=== PATIENT | male | born 1970 | race Two or more races ===

== ENCOUNTER 2016-08-12 18:48 | Observation (INO) | payer OTHER ==
--- NOTE | 2016-08-12 19:01 | CPEKG ---
Heart Rate: 103 RR Interval: 583 P-R Interval: 148 QRSD Interval: 98 QT Interval: 328 QTC Interval: 430 P [place]: 71 QRS [place]: 127 T Wave [place]: 20 EKG Severity - ABNORMAL ECG - EKG Impression: SINUS TACHYCARDIA EKG Impression: RIGHT VENTRICULAR HYPERTROPHY Electronically Signed By: Karan Crespo 12-Aug-2016 23:10:10
[2016-08-12] MEDS ORDERED: NS 1,000 ML IV ONE (19:12)
--- NOTE | 2016-08-12 19:12 | EDPHY ---
H & P Time Seen by Provider: 08/12/16 18:53 HPI/ROS: Chief complaint. Chest pain HPI. 46-year-old male here by EMS with right-sided chest pain. He developed a cough today. It is not productive. He has had cold sweats and shaking today. Unsure whether he had a fever. He felt somewhat delirious. He had a near syncopal episode. Pain on the right side is worse with movement but not with breathing or exertion. He does feel slightly short of breath. He has no unusual leg pain or swelling. He has had recent travel to the [facility] in the last 2 weeks. Denies any other medical problems. No known exposure to Infectious Disease ROS Constitutional. Fever and weakness Eyes. no problems with vision ENT. no sore throat, no nasal drainage Cardiovascular. Right-sided chest pain Respiratory. Shortness of breath cough Abdominal. no abdominal pain, no nausea/vomiting, no diarrhea . no problems urinating MS. no calf pain/swelling, no neck/back pain, no joint pain Skin. no rash Lymph. no swollen glands Neuro. Near syncope Past Medical/Surgical History: Denies past medical history Social History: , nonsmoker, no alcohol Smoking Status: Former smoker Physical Exam: General Appearance: Alert well-developed male moderate distress vital signs show temp 38.1degrees, heart rate 115, blood pressure 153/108 Eyes: Pupils equal and round no pallor or injection. ENT, Mouth: Mucous membranes are moist. Respiratory: No retractions. Lungs are essentially clear though may be some rhonchi on the right. Cardiovascular: Regular rate and rhythm. Gastrointestinal: Abdomen is soft and nontender, no masses, bowel sounds normal. Neurological: Awake and alert, sensory and motor exams grossly normal. Skin: Warm and dry, no rashes. Musculoskeletal: Neck is supple nontender. Extremities symmetrical, full range of motion. Psychiatric: Patient is oriented X 3, there is no agitation. Constitutional: Initial Vital Signs Temperature (C) 38.1 C 08/12/16 18:52 Heart Rate 115 H 08/12/16 18:52 Respiratory Rate 24 H 08/12/16 18:52 Blood Pressure 153/108 H 08/12/16 18:52 O2 Sat (%) 97 08/12/16 18:52 O2 Delivery Mode Room Air Allergies/Adverse Reactions: No Known Allergies Allergy (Unverified 08/12/16 18:52) Home Medications: Medication Instructions Recorded Herbals/Supplements -Info Only 1 ea PO DAILY 08/12/16 Ibuprofen [Motrin (*)] 800 mg PO HS 08/12/16 Multivitamins [Multivitamin (*)] 1 each PO DAILY 08/12/16 Medical Decision Making - Diagnostics EKG Interpretation: EKG interpreted by me shows sinus tachycardia with normal interval and axis. Evidence of right ventricular hypertrophy. QRS otherwise normal. There is no significant ST elevation or depression. No arrhythmia. The rate is 103 Procedures: IV normal saline. Sepsis workup. Initial lactate is elevated at 2.8. Severe sepsis is declared now. Repeat lactate is ordered. 30 milliliter/kilogram fluid bolus is ordered. IV ceftriaxone and azithromycin ED Course/Re-evaluation: Re-evaluation at 8:10 p.m.. The patient and I discussed EKG, imaging, laboratory evaluation. We discussed treatment plan and recommendation for admission. He expresses understanding and agreement I have consulted and discussed case with Dr. Banuelos, hospitalist, who agrees to the admission Differential Diagnosis: Patient had signs and symptoms of sepsis. By laboratory evaluation he has severe sepsis with elevated lactate. He has fever, cough, and right-sided chest discomfort. I suspect that he is developing right-sided pneumonia. I considered pulmonary embolus and acute coronary syndrome as well This is a community-acquired pneumonia as the patient does not have regular contact with healthcare facility and has not recently been on antibiotics Critical Care Time: Critical care time exclusive procedures 35 minutes - Data Points Laboratory Results: Laboratory Results 08/12/16 18:55 08/12/16 18:55 08/12/16 08/12/16 08/12/16 19:31 19:20 18:55 WBC RBC Hgb Hct MCV MCH MCHC RDW Plt Count MPV Neut % (Auto) Lymph % (Auto) [facility] % (Auto) Eos % (Auto) Baso % (Auto) Nucleat RBC Rel Count Absolute Neuts (auto) Absolute Lymphs (auto) Absolute Monos (auto) Absolute Eos (auto) Absolute Basos (auto) Absolute Nucleated RBC Immature Gran % Immature Gran # PT INR APTT D-Dimer VBG Lactic Acid 2.8 mmol/L H mmol/L (0.7-2.1) Sodium Potassium Chloride Carbon Dioxide Anion Gap BUN Creatinine Estimated GFR Glucose Calcium Total Bilirubin 0.5 mg/dL mg/dL (0.1-1.4) Troponin I Urine Color PALE YELLOW Urine Appearance CLEAR Urine pH 5.0 (5.0-7.5) Ur Specific [place] 1.004 (1.002-1.030) Urine Protein NEGATIVE (NEGATIVE) Urine Ketones NEGATIVE (NEGATIVE) Urine Blood 1+ H (NEGATIVE) Urine Nitrate NEGATIVE (NEGATIVE) Urine Bilirubin NEGATIVE (NEGATIVE) Urine Urobilinogen NEGATIVE EU EU (0.2-1.0) Ur Leukocyte Esterase NEGATIVE (NEGATIVE) Urine RBC 3-5 /hpf H /hpf (0-3) Urine WBC 1-3 /hpf /hpf (0-3) Ur Epithelial Cells NONE SEEN /lpf /lpf (NONE-1+) Urine Mucus TRACE /lpf /lpf (NONE-1+) Urine Glucose NEGATIVE (NEGATIVE) 08/12/16 08/12/16 08/12/16 18:55 18:55 18:55 WBC 8.58 10^3/uL 10^3/uL (3.80-9.50) RBC 5.05 10^6/uL 10^6/uL (4.40-6.38) Hgb 15.4 g/dL g/dL (13.7-17.5) Hct 44.6 % % (40.0-51.0) MCV 88.3 fL fL (81.5-99.8) MCH 30.5 pg pg (27.9-34.1) MCHC 34.5 g/dL g/dL (32.4-36.7) RDW 12.5 % % (11.5-15.2) Plt Count 145 10^3/uL L 10^3/uL (150-400) MPV 11.9 fL H fL (8.7-11.7) Neut % (Auto) 84.8 % H % (39.3-74.2) Lymph % (Auto) 6.4 % L % (15.0-45.0) [facility] % (Auto) 8.0 % % (4.5-13.0) Eos % (Auto) 0.1 % L % (0.6-7.6) Baso % (Auto) 0.2 % L % (0.3-1.7) Nucleat RBC Rel Count 0.0 % % (0.0-0.2) Absolute Neuts (auto) 7.27 10^3/uL H 10^3/uL (1.70-6.50) Absolute Lymphs (auto) 0.55 10^3/uL L 10^3/uL (1.00-3.00) Absolute Monos (auto) 0.69 10^3/uL 10^3/uL (0.30-0.80) Absolute Eos (auto) 0.01 10^3/uL L 10^3/uL (0.03-0.40) Absolute Basos (auto) 0.02 10^3/uL 10^3/uL (0.02-0.10) Absolute Nucleated RBC 0.00 10^3/uL 10^3/uL (0-0.01) Immature Gran % 0.5 % % (0.0-1.1) Immature Gran # 0.04 10^3/uL 10^3/uL (0.00-0.10) PT 12.9 SEC SEC (12.0-15.0) INR 0.98 (0.83-1.16) APTT 28.6 SEC SEC (23.0-38.0) D-Dimer 0.28 ug/mLFEU ug/mLFEU (0.00-0.50) VBG Lactic Acid Sodium 132 mEq/L L mEq/L (134-144) Potassium 4.1 mEq/L mEq/L (3.5-5.2) Chloride 100 mEq/L mEq/L (97-110) Carbon Dioxide 22 mEq/l mEq/l (22-31) Anion Gap 10 mEq/L mEq/L (8-16) BUN 17 mg/dL mg/dL (7-23) Creatinine 1.0 mg/dL mg/dL (0.7-1.3) Estimated GFR > 60 Glucose 144 mg/dL H mg/dL (70-100) Calcium 9.2 mg/dL mg/dL (8.5-10.4) Total Bilirubin Troponin I < 0.012 ng/mL ng/mL (0-0.034) Urine Color Urine Appearance Urine pH Ur Specific [place] Urine Protein Urine Ketones Urine Blood Urine Nitrate Urine Bilirubin Urine Urobilinogen Ur Leukocyte Esterase Urine RBC Urine WBC Ur Epithelial Cells Urine Mucus Urine Glucose Medications Given: Discontinued Medications Acetaminophen (Tylenol) 1,000 mg PO EDNOW ONE Stop: 08/12/16 19:33 Last Admin: 08/12/16 19:38 Dose: 1,000 mg Sodium Chloride (Ns) 1,000 mls @ 0 mls/hr IV ONCE ONE PRN Reason: Wide Open Stop: 08/12/16 19:13 Last Admin: 08/12/16 19:13 Dose: 1,000 mls Sodium Chloride (Ns) 2,800 mls @ 5,600 mls/hr 30 ml/kg infuse over 30 min ( 2800 ml) IV EDNOW ONE Stop: 08/12/16 19:49 Last Admin: 08/12/16 19:38 Dose: 2,800 mls Ceftriaxone Sodium/Dextrose (Rocephin 1 Gm (Premix)) 50 mls @ 100 mls/hr IV EDNOW ONE PRN Reason: Protocol Stop: 08/12/16 20:14 Last Admin: 08/12/16 19:50 Dose: 50 mls Departure - Departure Disposition: [facility] Inpatient Acute Clinical Impression: Severe sepsis Pneumonia Qualifiers: Pneumonia type: due to unspecified organism Laterality: right Lung location: lower lobe of lung Qualified Code(s): J18.1 - Lobar pneumonia, unspecified organism Condition: Fair Referrals: Patient,NotPresent [Unknown] - As per Instructions
[2016-08-12 19:19] LABS: % IMMATURE GRANULYOCYTES 0.5 % (0.0-1.1); ABSOLUTE IMMATURE GRANULOCYTES 0.04 10^3/uL (0.00-0.10); ADD DIFF? NO; ADD MORPH? NO; ADD SCAN? NO; ATYPICAL LYMPHOCYTE FLAG 0 (0-99); FRAGMENT RBC FLAG 0 (0-99); HEMATOCRIT 44.6 % (40.0-51.0); HEMOGLOBIN 15.4 g/dL (13.7-17.5); LEFT SHIFT FLG 0 (0-99); LIPEMIA HEMOLYSIS FLAG 90 (0-99); MEAN CELL HEMOGLOBIN 30.5 pg (27.9-34.1); MEAN CELL HEMOGLOBIN CONCENTR. 34.5 g/dL (32.4-36.7); MEAN CELL VOLUME 88.3 fL (81.5-99.8); MEAN PLATELET VOLUME 11.9 fL (8.7-11.7); PLATELET CLUMPS FLAG 10 (0-99); PLATELET COUNT 145 10^3/uL (150-400); RED BLOOD CELL COUNT 5.05 10^6/uL (4.40-6.38); RED CELL DISTRIBUTION WIDTH 12.5 % (11.5-15.2)
[2016-08-12] MEDS ORDERED: NS 2,800 ML IV ONE (19:20)
[2016-08-12 19:24] LABS: ANION GAP 10 mEq/L (8-16); CALCIUM 9.2 mg/dL (8.5-10.4); CARBON DIOXIDE 22 mEq/l (22-31); CHLORIDE 100 mEq/L (97-110); GLOMERULAR FILTRATION RATE > 60; GLUCOSE 144 mg/dL (70-100); POTASSIUM 4.1 mEq/L (3.5-5.2); SODIUM 132 mEq/L (134-144)
[2016-08-12] MEDS ORDERED: ACETAMINOPHEN 500 MG TAB PO ONE (19:32)
[2016-08-12 19:36] LABS: COLOR PALE YELLOW; LEUKOCYTE ESTERASE,URINE NEGATIVE (NEGATIVE); NITRITE,URINE NEGATIVE (NEGATIVE)
[2016-08-12 19:36] LABS: TROPONIN I < 0.012 ng/mL (0-0.034)
[2016-08-12 19:39] LABS: MUCUS TRACE /lpf (NONE-1+)
[2016-08-12] MEDS ORDERED: AZITHROMYCIN IV 500 MG in D5W 250 ML IV ONE (19:46)
[2016-08-12 19:50] LABS: INR 0.98 (0.83-1.16); PROTIME(PATIENT) 12.9 SEC (12.0-15.0)
[2016-08-12 19:51] LABS: APTT 28.6 SEC (23.0-38.0)
[2016-08-12 19:53] LABS: BILIRUBIN,TOTAL 0.5 mg/dL (0.1-1.4)
[2016-08-12] MEDS ORDERED: ONDANSETRON 4 MG/2 ML VIAL IVP PRN (20:31)
[2016-08-12] MEDS ORDERED: ONDANSETRON DISINTEGRATING 4 MG TAB PO PRN (20:31)
[2016-08-12] MEDS ORDERED: ACETAMINOPHEN 325 MG TAB PO PRN (20:31)
[2016-08-12] MEDS ORDERED: guaiFENesin/CODEINE PHOS 10 ML UDCUP PO PRN (20:33)
--- NOTE | 2016-08-12 22:12 | PDGENHP ---
History and Physical - Chief Complaint acute fever - History of Present Illness PCP: In [place] HPI: 46-year-old male presenting with acute subjective fever characterized as chills and shaking with associated nonproductive cough, sore throat located in the anterior throat, right-sided chest pain located in the apical right anterior chest, exacerbated by movement and deep inspiration, alleviated by lying on his right side. Onset of symptoms was on the morning of presentation duration has been persistent thereafter. Patient reports that he is otherwise feeling well on the day prior to this presentation. 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 He has recently been traveling around numerous locale including [facility]. He reports he is normally a physically active and healthy individual and this acute illness is highly unusual for him. History Information - Allergies/Home Medication List Allergies/Adverse Reactions: No Known Allergies Allergy (Unverified 08/12/16 18:52) Home Medications: Herbals/Supplements -Info Only 1 ea PO DAILY 08/12/16 [Last Taken Unknown] Ibuprofen [Motrin (*)] 800 mg PO HS 08/12/16 [Last Taken 08/11/16] Multivitamins [Multivitamin (*)] 1 each PO DAILY 08/12/16 [Last Taken Unknown] I have personally reviewed and updated: family history, medical history, social history, surgical history - Past Medical History no pertinent PMH - Surgical History Reports: no pertinent surgical hx - Family History Additional family history: Mother with rheumatoid arthritis - Social History Smoking Status: Former smoker Alcohol Use: Occasionally Drug Use: Marijuana Additional social history: history of cocaine use but no IV drug Review of Systems ROS: 10pt was reviewed & negative except for what was stated in HPI & below Constitutional: Reports: chills, fever, malaise Cardiac: Reports: chest pain Respiratory: Reports: cough Genitourinary: Reports: other ( polyuria) Physical Exam Temp Pulse Resp BP Pulse Ox 37.0 C 87 18 118/102 H 95 08/12/16 20:43 08/12/16 20:43 08/12/16 20:43 08/12/16 20:43 08/12/16 20:43 Constitutional: appears nourished, uncomfortable, No no apparent distress ( mild distress), No not in pain ( right-sided chest) Eyes: PERRL, anicteric sclera, EOMI Ears, Nose, Mouth, Throat: moist mucous membranes, hearing normal, ears appear normal, no oral mucosal ulcers Cardiovascular: tachycardia, No systolic murmur, No irregularly irregular, No edema Respiratory: expiratory wheeze, inspiratory crackles ( faint posteriorly), No bronchial breath sounds, No respiratory distress, No rhonchi Gastrointestinal: normoactive bowel sounds, soft, non-tender abdomen, no palpable masses Genitourinary: no bladder fullness, no bladder tenderness Skin: other ( no vesicles or erythematous areas on the anterior chest) Musculoskeletal: other ( no tenderness to palpation over the right pectoralis muscle, no limited range of motion right shoulder or tenderness over the sub AC joint) Neurologic: AAOx3, No facial droop Psychiatric: interacting appropriately, not anxious, not encephalopathic, thought process linear Lymph, Heme, Immunologic: other ( palpable nontender 1 cm bilateral submandibular lymph nodes without any anterior posterior cervical lymphadenopathy) Lab Data & Imaging Review 08/12/16 18:55 08/12/16 18:55 WBC 8.58 10^3/uL (3.80-9.50) 08/12/16 18:55 RBC 5.05 10^6/uL (4.40-6.38) 08/12/16 18:55 Hgb 15.4 g/dL (13.7-17.5) 08/12/16 18:55 Hct 44.6 % (40.0-51.0) 08/12/16 18:55 MCV 88.3 fL (81.5-99.8) 08/12/16 18:55 MCH 30.5 pg (27.9-34.1) 08/12/16 18:55 MCHC 34.5 g/dL (32.4-36.7) 08/12/16 18:55 RDW 12.5 % (11.5-15.2) 08/12/16 18:55 Plt Count 145 10^3/uL (150-400) L 08/12/16 18:55 MPV 11.9 fL (8.7-11.7) H 08/12/16 18:55 Neut % (Auto) 84.8 % (39.3-74.2) H 08/12/16 18:55 Lymph % (Auto) 6.4 % (15.0-45.0) L 08/12/16 18:55 [place] % (Auto) 8.0 % (4.5-13.0) 08/12/16 18:55 Eos % (Auto) 0.1 % (0.6-7.6) L 08/12/16 18:55 Baso % (Auto) 0.2 % (0.3-1.7) L 08/12/16 18:55 Nucleat RBC Rel Count 0.0 % (0.0-0.2) 08/12/16 18:55 Absolute Neuts (auto) 7.27 10^3/uL (1.70-6.50) H 08/12/16 18:55 Absolute Lymphs (auto) 0.55 10^3/uL (1.00-3.00) L 08/12/16 18:55 Absolute Monos (auto) 0.69 10^3/uL (0.30-0.80) 08/12/16 18:55 Absolute Eos (auto) 0.01 10^3/uL (0.03-0.40) L 08/12/16 18:55 Absolute Basos (auto) 0.02 10^3/uL (0.02-0.10) 08/12/16 18:55 Absolute Nucleated RBC 0.00 10^3/uL (0-0.01) 08/12/16 18:55 Immature Gran % 0.5 % (0.0-1.1) 08/12/16 18:55 Immature Gran # 0.04 10^3/uL (0.00-0.10) 08/12/16 18:55 PT 12.9 SEC (12.0-15.0) 08/12/16 18:55 INR 0.98 (0.83-1.16) 08/12/16 18:55 APTT 28.6 SEC (23.0-38.0) 08/12/16 18:55 D-Dimer 0.28 ug/mLFEU (0.00-0.50) 08/12/16 18:55 VBG Lactic Acid 0.6 mmol/L (0.7-2.1) L D 08/12/16 21:18 Sodium 132 mEq/L (134-144) L 08/12/16 18:55 Potassium 4.1 mEq/L (3.5-5.2) 08/12/16 18:55 Chloride 100 mEq/L (97-110) 08/12/16 18:55 Carbon Dioxide 22 mEq/l (22-31) 08/12/16 18:55 Anion Gap 10 mEq/L (8-16) 08/12/16 18:55 BUN 17 mg/dL (7-23) 08/12/16 18:55 Creatinine 1.0 mg/dL (0.7-1.3) 08/12/16 18:55 Estimated GFR > 60 08/12/16 18:55 Glucose 144 mg/dL (70-100) H 08/12/16 18:55 Calcium 9.2 mg/dL (8.5-10.4) 08/12/16 18:55 Total Bilirubin 0.5 mg/dL (0.1-1.4) 08/12/16 19:20 Troponin I < 0.012 ng/mL (0-0.034) 08/12/16 18:55 Urine Color PALE YELLOW 08/12/16 19:31 Urine Appearance CLEAR 08/12/16 19:31 Urine pH 5.0 (5.0-7.5) 08/12/16 19:31 Ur Specific [place] 1.004 (1.002-1.030) 08/12/16 19:31 Urine Protein NEGATIVE (NEGATIVE) 08/12/16 19:31 Urine Ketones NEGATIVE (NEGATIVE) 08/12/16 19:31 Urine Blood 1+ (NEGATIVE) H 08/12/16 19:31 Urine Nitrate NEGATIVE (NEGATIVE) 08/12/16 19:31 Urine Bilirubin NEGATIVE (NEGATIVE) 08/12/16 19:31 Urine Urobilinogen NEGATIVE EU (0.2-1.0) 08/12/16 19:31 Ur Leukocyte Esterase NEGATIVE (NEGATIVE) 08/12/16 19:31 Urine RBC 3-5 /hpf (0-3) H 08/12/16 19:31 Urine WBC 1-3 /hpf (0-3) 08/12/16 19:31 Ur Epithelial Cells NONE SEEN /lpf (NONE-1+) 08/12/16 19:31 Urine Mucus TRACE /lpf (NONE-1+) 08/12/16 19:31 Urine Glucose NEGATIVE (NEGATIVE) 08/12/16 19:31 Visualized and Interpreted Chest x-ray results: Yes Chest X-Ray results: no infiltrate ( no focal infiltrate there faint interstitial markings) Visualized and Interpreted EKG results: Yes EKG Interpretation: Positive for: other ( sinus tachycardia with T-wave inversions in lead 3) Assessment & Plan Assessment: 46-year-old male presenting with acute systemic inflammatory response syndrome Plan: 1. Systemic inflammatory response syndrome. Acute, new problem this provider, further workup indicated. Evidenced by fever and tachycardia without clear source of infection. Possible sources include viral versus bacterial pneumonia versus systemic viral syndrome. -send respiratory viral panel -send sputum culture -blood culture sent -if respiratory status worsening, repeat chest x-ray or get noncontrast chest CT -continue high rate IV fluids -continue empiric IV antibiotics including ceftriaxone and azithromycin for possible community-acquired pneumonia 2. Hyponatremia. Acute, most likely secondary to hypovolemia, treat with normal saline and repeat serum sodium level in a.m. 3. Lactic acidosis. Metabolic acidosis most likely secondary to hypovolemia, treated with normal saline and resolved 4. Chest pain. Acute, most likely secondary to pleuritis in the setting of above , placed on scheduled naproxen, repeat troponin level in a.m. to ensure this is not referred pain from pericarditis Diet. Regular Prophylaxis. Low risk patient, SCDs Code. Full Disposition. Anticipated discharge is 08/13/2016, pending further workup of conditions as outlined above. I have discussed patient's presentation with Dr. Karan Crespo and we both agree the patient should receive close observation overnight with ongoing use of IV fluids and IV antibiotics.
[2016-08-12] MEDS: NAPROXEN SODIUM 220 MG TAB PO SCH (22:35)
[2016-08-12] MEDS: NS 1,000 ML IV SCH (22:38)
[2016-08-12] MEDS: guaiFENesin 600 MG TAB.ER PO SCH (22:41)
[2016-08-13] MEDS: IPRATROPIUM/ALBUTEROL 3 ML DEYVIAL IH SCH ×3 (01:37→11:57)
[2016-08-13] MEDS: NS 1,000 ML IV SCH (03:38)
[2016-08-13 04:40] LABS: % IMMATURE GRANULYOCYTES 0.3 % (0.0-1.1); ABSOLUTE IMMATURE GRANULOCYTES 0.02 10^3/uL (0.00-0.10); ADD DIFF? NO; ADD MORPH? NO; ADD SCAN? NO; ATYPICAL LYMPHOCYTE FLAG 30 (0-99); FRAGMENT RBC FLAG 0 (0-99); HEMATOCRIT 38.3 % (40.0-51.0); HEMOGLOBIN 13.1 g/dL (13.7-17.5); LEFT SHIFT FLG 0 (0-99); LIPEMIA HEMOLYSIS FLAG 90 (0-99); MEAN CELL HEMOGLOBIN 30.8 pg (27.9-34.1); MEAN CELL HEMOGLOBIN CONCENTR. 34.2 g/dL (32.4-36.7); MEAN CELL VOLUME 89.9 fL (81.5-99.8); MEAN PLATELET VOLUME 11.3 fL (8.7-11.7); PLATELET CLUMPS FLAG 0 (0-99); PLATELET COUNT 125 10^3/uL (150-400); RED BLOOD CELL COUNT 4.26 10^6/uL (4.40-6.38); RED CELL DISTRIBUTION WIDTH 12.7 % (11.5-15.2)
[2016-08-13 04:49] LABS: ALANINE AMINOTRANSFERASE 35 IU/L (21-72); ALBUMIN 3.1 g/dL (3.5-5.0); ALKALINE PHOSPHATASE 56 IU/L (38-126); ANION GAP 6 mEq/L (8-16); ASPARTATE AMINOTRANSFERASE 24 IU/L (17-59); BILIRUBIN,TOTAL 0.5 mg/dL (0.1-1.4); CALCIUM 7.9 mg/dL (8.5-10.4); CARBON DIOXIDE 21 mEq/l (22-31); CHLORIDE 114 mEq/L (97-110); CREATININE 0.8 mg/dL (0.7-1.3); GLOMERULAR FILTRATION RATE > 60; GLUCOSE 95 mg/dL (70-100); SODIUM 141 mEq/L (134-144); TOTAL PROTEIN 5.6 g/dL (6.3-8.2)
[2016-08-13 05:00] LABS: TROPONIN I < 0.012 ng/mL (0-0.034)
[2016-08-13 08:11] VITALS: BP 140/78; PULSE 66; RESP 18; TEMP 98; O2SAT 96
--- NOTE | 2016-08-13 08:37 | HOSPPROG ---
Hospitalist Progress Note Assessment/Plan: #SIRS: resolved. Flu B positive. Bld cxs pending #Influenza B: start Tamiflu #Hypovolemic hyponatremia: resolved with IVFs #Lactic acidosis: resolved #Atypical CP: pleuritic. Trops and EKG negative #Fever: resolved #tachycardia: resolved with IVFs #Disp: DC today with Tamiflu Subjective: feeling much better Objective: Vital Signs Temp Pulse Resp BP Pulse Ox 36.7 C 66 18 140/78 H 96 08/13/16 08:08 08/13/16 08:08 08/13/16 08:08 08/13/16 08:08 08/13/16 08:08 Laboratory Results 08/13/16 04:16 08/13/16 04:16 08/12/16 08/13/16 08/14/16 05:59 05:59 05:59 Intake Total 4548 Output Total 2070 Balance 2478 PT 12.9 SEC (12.0-15.0) 08/12/16 18:55 INR 0.98 (0.83-1.16) 08/12/16 18:55 - Physical Exam Constitutional: no apparent distress Eyes: PERRL Ears, Nose, Mouth, Throat: moist mucous membranes Cardiovascular: regular rate and rhythym, no murmur, rub, or gallop Respiratory: no respiratory distress, no rales or rhonchi Gastrointestinal: normoactive bowel sounds, soft, non-tender abdomen Genitourinary: no bladder fullness Skin: warm Musculoskeletal: full muscle strength Neurologic: AAOx3, CN II-XII Intact Psychiatric: interacting appropriately ICD10 Worksheet Patient Problems: Problems Problem Status Onset Pneumonia Acute Severe sepsis Acute
[2016-08-13] MEDS: NAPROXEN SODIUM 220 MG TAB PO SCH (08:40)
[2016-08-13] MEDS: guaiFENesin 600 MG TAB.ER PO SCH (08:41)
[2016-08-13] MEDS ORDERED: AZITHROMYCIN IV 500 MG in D5W 250 ML IV SCH (09:00)
[2016-08-13] MEDS ORDERED: OSELTAMIVIR PHOSPHATE 75 MG CAP PO SCH (09:18)
--- NOTE | 2016-08-13 10:42 | GDS ---
[f rep st] DISCHARGE SUMMARY DISCHARGE DIAGNOSES: 1. Systemic inflammatory response syndrome. 2. Influenza B. 3. Fever. 4. Hypovolemic hyponatremia. 5. Lactic acidosis. 6. Pleuritic chest pain. 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 He acutely developed a fever, chills, and a nonproductive cough yes terday. He also complained of a sore throat, right-sided chest pain that is worse with deep inspira tion. He was doing well prior to the day before. HOSPITAL COURSE: 1. SIRS: Mild fever with concern of an upper respiratory infection. He was initially treated with IV antibiotics. However, influenza B resulted. He will be treated with Tamiflu for 5 days along w ith supportive care with plenty of fluids and rest. 2. Influenza B. Again, Tamiflu for 5 days. Recommended rest, fluids. 3. Hypovolemic hyponatremia: Secondary to decreased p.o. intake. This has resolved with IV fluids . 4. Lactic acidosis secondary to hypovolemia. This also resolved. DISPOSITION: Patient is stable for discharge. He was advised to wash hands and wear masks for the next 24 hours. DISCHARGE MEDICATIONS: New medication: Tamiflu. /[id number]/MODL
[2016-08-14] MEDS ORDERED: MULTIVITAMINS 1 EACH TAB PO SCH (09:00)
[2016-08-14] MEDS ORDERED: Herbals/Supplements -Info Only PO SCH (09:00)
== END 2016-08-13 11:30 | disposition home or self-care (01) ==
LOC: INTOOBSV 20:29 → F1N 22:04
PROVIDERS: ADMIT Internal Medicine; ATTEND Internal Medicine
DX: J10.89 Influenza due to other identified influenza virus with other manifestations (principal); R65.10 Systemic inflammatory response syndrome (SIRS) of non-infectious origin without acute organ dysfunction; E87.1 Hypo-osmolality and hyponatremia; E86.1 Hypovolemia; E87.2 Acidosis; R07.89 Other chest pain; Z87.891 Personal history of nicotine dependence
CPT/HCPCS: 71020; 93005; G0378; J0456; J0696